=== PATIENT | female | born 1955 | race Caucasian/White ===

== ENCOUNTER → 2018-07-15 | Outpatient (CLI) | payer BC ==
[~2018-07-15] MED LIST: ACCUPRIL; ALPR.25T PO; ASP81TEC PO; ASPIRIN; CENTRUM SILVER; CITRACAL PO; CRS350T PO; CTRZ10T PO; DULO60CA6 PO; ESTR2TAB; FISH1CAP15 PO; HCT25T PO; HYDR-2890 PO; HYDROCHLOROTHIAZIDE; HYTRIN; LANS30CA PO; LIPITOR; METO50TA7; MTP50T PO; MULT-856 PO; NEXIUM; PITA4TAB2 PO; QUIN20TA15 PO; SERTRALINE; SRTR100T PO; TERA1CAP3 PO; TOPROL XL; ZYRTEC D
--- NOTE | 2018-07-15 14:27 | Diagnostic Imaging Report ---
EXAMINATION: Digital mammogram bilateral screening with 3D tomosynthesis and CAD. INDICATION: Screening. COMPARISON: This study is compared to the prior exams of 07/31/2016, 06/06/2015, and 06/01/2014. PERSONAL HISTORY: At this time, there are no current complaints. FINDINGS: The fibroglandular tissue in both breasts is heterogeneously dense. This does limit the sensitivity of this exam. Overall, there does not appear to have been any significant change when compared to the prior study. No primary or secondary sign of malignancy is noted. IMPRESSION: There is no radiographic evidence for malignancy. ACR BI-RADS Category 1: Negative. Result letter will be mailed to the patient. Note: At least 10% of breast cancer is not imaged by mammography. Dictated by: Dictated on workstation # [id number]
== END ==
LOC: RAD 11:30
PROVIDERS: ATTEND Family Medicine
DX: Z12.31 Encounter for screening mammogram for malignant neoplasm of breast (principal)
CPT/HCPCS: 77067

== ENCOUNTER → 2018-11-18 | Outpatient (CLI) | payer BC ==
[~2018-11-18] MED LIST changes: +HOLD METFORMIN - RECEIVED CONTRAST 20 ML VIAL IV SCH; +IOHEXOL 350 MG/ML 100 ML (OMNIPAQUE 350) VIAL IV ONE
--- NOTE | 2018-11-18 15:03 | Diagnostic Imaging Report ---
PROCEDURE: CT abdomen and pelvis with contrast. TECHNIQUE: Multiple contiguous axial images were obtained through the abdomen and pelvis after administration of intravenous contrast. Auto Exposure Controls were utilized during the CT exam to meet ALARA standards for radiation dose reduction. INDICATION: Elevated liver enzymes. Correlation is made with prior CT from 12/13/2011. Imaging through lung bases demonstrates two tiny nodules in the right lower lobe approximately 3-4 mm in size. These could be obscured by the infiltrate or atelectasis noted on prior CT. The liver demonstrates generalized low density consistent with hepatic steatosis. The gallbladder is unremarkable. There is no liver mass. No biliary ductal dilatation is seen. The pancreas and spleen are unremarkable. No adrenal mass is identified. Kidneys are unremarkable. Aorta is calcified but nonaneurysmal. No central, retroperitoneal or mesenteric lymphadenopathy is seen. The small and large bowel loops are normal caliber. No obstruction is identified. There is no ascites. The bladder is unremarkable. No definite pelvic lymphadenopathy is seen. Postsurgical changes in the lumbar spine with spinal instrumentation is again noted. IMPRESSION: 1. Hepatic steatosis. No discrete liver mass is identified. 2. Otherwise unremarkable CT of the abdomen and pelvis. No acute features detected. Dictated by: Dictated on workstation # [id number]
== END ==
LOC: RAD 14:00
PROVIDERS: ATTEND Nurse Practitioner Family
DX: K76.0 Fatty (change of) liver, not elsewhere classified (principal); Z98.890 Other specified postprocedural states
CPT/HCPCS: 74177

== ENCOUNTER → 2018-12-22 | Outpatient (CLI) | payer BC ==
[~2018-12-22] MED LIST changes: -HOLD METFORMIN - RECEIVED CONTRAST 20 ML VIAL IV SCH; -IOHEXOL 350 MG/ML 100 ML (OMNIPAQUE 350) VIAL IV ONE
--- NOTE | 2018-12-22 16:12 | Diagnostic Imaging Report ---
INDICATION: Right hip pain. TIME OF EXAM: 03:59 p.m. Two views right hip demonstrate normal femoral acetabular alignment. There is some superior joint space narrowing consistent with degenerative change. Femoral head and neck are intact. No fractures are seen. Right-sided rami are intact. IMPRESSION: Mild degenerative changes. No acute bony abnormality is detected. Dictated by: Dictated on workstation # [id number]
== END ==
LOC: RAD 15:24
PROVIDERS: ATTEND Family Medicine
DX: M16.11 Unilateral primary osteoarthritis, right hip (principal)
CPT/HCPCS: 73502

== ENCOUNTER → 2019-07-06 | Outpatient (CLI) | payer BC ==
[~2019-07-06] MED LIST changes: +HOLD METFORMIN - RECEIVED CONTRAST 20 ML VIAL IV SCH; +IOHEXOL 350 MG/ML 100 ML (OMNIPAQUE 350) VIAL IV ONE; +NS 100 ML (IVPB) BAG IV ONE
[2019-07-06 11:37] LABS: BUN/CREATININE RATIO 16; CALCIUM 9.4 MG/DL (8.5-10.1); CARBON DIOXIDE 28 MMOL/L (21-32); CHLORIDE 104 MMOL/L (98-107); CREATININE SERUM 0.82 MG/DL (0.60-1.30); GFR ESTIMATED > 60; GLUCOSE 84 MG/DL (70-105); POTASSIUM 3.9 MMOL/L (3.6-5.0); SODIUM 142 MMOL/L (135-145)
--- NOTE | 2019-07-06 13:00 | Diagnostic Imaging Report ---
PROCEDURE: CT chest with contrast only. TECHNIQUE: Multiple contiguous axial images were obtained through the chest after administration of intravenous contrast. Auto Exposure Controls were utilized during the CT exam to meet ALARA standards for radiation dose reduction. INDICATION: Pulmonary nodule. COMPARISON: CT of the abdomen and pelvis dated November 18, 2018. FINDINGS: No significant adenopathy within the chest. Minimal scattered vascular calcifications. No aneurysmal dilatation of the thoracic aorta. The heart is within normal limits in size. No pericardial effusion. No pleural effusion. Mild mural thickening of the distal esophagus, similar to the prior exam. No pneumothorax. 4 mm and smaller subpleural right lower lobe pulmonary nodules are present, appearing stable from the prior examination. This region was predominantly obscured by pleural fluid and atelectasis in 2012. No new pulmonary nodules. The airway is patent. Mild atelectasis within the right lung base. Diffusely decreased density of the liver is again noted. Stimulator lead is seen extending into the mid thoracic spinal canal. Additional postsurgical changes are noted near the thoracolumbar junction. Scattered osseous degenerative changes without acute osseous abnormality. IMPRESSION: Stable sub-4 mm right lower lobe subpleural pulmonary nodules. Recommend a follow-up CT of the chest in one year to monitor stability. No new pulmonary nodules are seen. Mild esophagitis is suspected. Fatty infiltration of the liver. Dictated by: Dictated on workstation # [id number]
== END ==
LOC: RAD 10:50
PROVIDERS: ATTEND Family Medicine
DX: R91.8 Other nonspecific abnormal finding of lung field (principal)
CPT/HCPCS: 36415; 71260; 80048

== ENCOUNTER → 2019-07-21 | Outpatient (CLI) | payer BC ==
[~2019-07-21] MED LIST changes: -HOLD METFORMIN - RECEIVED CONTRAST 20 ML VIAL IV SCH; -IOHEXOL 350 MG/ML 100 ML (OMNIPAQUE 350) VIAL IV ONE; -NS 100 ML (IVPB) BAG IV ONE
--- NOTE | 2019-07-22 09:22 | Diagnostic Imaging Report ---
INDICATION: Routine screening. COMPARISON is made with prior mammograms from 07/15/2018 07/31/2016. 2-D and 3-D bilateral screening mammography was performed with CAD. Both breasts are heterogeneously dense, limiting the sensitivity of mammography. Scattered nodular densities in both breasts appear to be stable and most consistent with benign etiologies. There is an area of increased density in the medial aspect of the left breast appearing more prominent on today's exam. This could represent summation but additional views are recommended. There are scattered benign calcifications in both breasts. No malignant appearing microcalcifications are seen. Axillae are unremarkable. IMPRESSION: BI-RADS 0 Left breast density. Additional views including spot compression and rolled CC views are recommended for further evaluation. ACR BI-RADS Category 0: Incomplete. (Needs additional imaging evaluation). Result letter will be mailed to the patient. Note: At least 10% of breast cancer is not imaged by mammography. Dictated by: Dictated on workstation # [id number]
== END ==
LOC: RAD 14:08
PROVIDERS: ATTEND Nurse Practitioner Family
DX: Z12.31 Encounter for screening mammogram for malignant neoplasm of breast (principal); R92.8 Other abnormal and inconclusive findings on diagnostic imaging of breast
CPT/HCPCS: 77067

== ENCOUNTER → 2019-07-30 | Outpatient (CLI) | payer BC ==
--- NOTE | 2019-07-30 15:35 | Diagnostic Imaging Report ---
INDICATION: Left breast density. Patient presents for additional views. CORRELATION is made with screening mammogram from 07/21/2019 as well as prior mammograms from 07/15/2018. Unilateral left 2-D and 3-D diagnostic mammography was performed. This includes spot compression CC, rolled CC as well as conventional 90 degree lateral view. The CC views show persistent density in the medial left breast with questionable spiculation or architectural distortion. This is difficult to see on the mediolateral view but may be at the level of the nipple. IMPRESSION: BI-RADS 0 Persistent irregular density medial left breast with questionable architectural distortion or spiculation. Sonographic interrogation of the medial left breast is recommended. This is approximately 8 to 10 cm from the nipple. ACR BI-RADS Category 0: Incomplete. (Needs additional imaging evaluation). Result letter will be mailed to the patient. Note: At least 10% of breast cancer is not imaged by mammography. Dictated by: Dictated on workstation # [id number]
--- NOTE | 2019-07-30 15:36 | Diagnostic Imaging Report ---
INDICATION: Left breast density. CORRELATION is made with diagnostic mammogram earlier the same day and screening mammogram from 07/21/2019. Sonographic interrogation of the medial left breast was performed. There is an area of slightly irregular hypoechogenicity at the 9:30 location of the left breast approximately 6 cm from the nipple. This measures 7 mm x 4 mm x 8 mm. There is posterior acoustic shadowing. This likely accounts for the density noted mammographically. No definite internal vascularity is seen. IMPRESSION: Ill-defined hypoechogenicity at the 9:30 location in the left breast approximately 6 cm from the nipple. This likely accounts for the mammographic density. Features are concerning for a small neoplasm and tissue sampling is recommended. This would be amenable to ultrasound-guided biopsy. BI-RADS Category 4 ACR BI-RADS Category 4: Suspicious abnormality. Result letter will be mailed to the patient. Note: At least 10% of breast cancer is not imaged by mammography. Dictated by: Dictated on workstation # [id number]
== END ==
LOC: RAD 14:05
PROVIDERS: ATTEND Family Medicine
DX: R92.2 Inconclusive mammogram (principal)
CPT/HCPCS: 76642

== ENCOUNTER → 2019-08-02 | Outpatient (CLI) | payer BC ==
[~2019-08-02] VITALS: Ht 175.3 cm; Wt 104.5 kg
[~2019-08-02] MED LIST changes: +LIDOCAINE 1% INJ 20 ML 20 ML VIAL INJ ONE
--- NOTE | 2019-08-02 17:58 | Diagnostic Imaging Report ---
INDICATION: Left breast nodule. Patient presents for ultrasound-guided biopsy. Patient was brought to the procedure room and placed on the table in the supine position. Ultrasound imaging of the left breast was performed to evaluate appropriate entry site. A total of 3 passes were made into the hypoechoic nodule at the 9:30 location of the left breast, 6 cm from the nipple utilizing the 14-gauge achieve needle. 3 core biopsies were obtained. Localizer clip was then deployed. Hemostasis was obtained using manual compression. Patient tolerated the procedure well and was sent for postprocedure mammogram in satisfactory condition. IMPRESSION: Successful ultrasound guided core biopsy of the hypoechoic nodule 9:30 location of the left breast, 6 cm from the nipple. Pathology results are currently pending. Dictated by: Dictated on workstation # [id number]
--- NOTE | 2019-08-02 18:56 | Diagnostic Imaging Report ---
INDICATION: Left breast biopsy. 2D, CC and ML mammography of the left breast was performed, status post ultrasound-guided biopsy. Marker clip is located in the medial left breast at the area of irregular density best seen on the CC view. IMPRESSION: Clip placement adjacent to the suspicious area of nodularity in the medial left breast. Dictated by: Dictated on workstation # [id number]
== END ==
LOC: RAD 13:25
PROVIDERS: ATTEND Nurse Practitioner Family
DX: C50.212 Malignant neoplasm of upper-inner quadrant of left female breast (principal)
CPT/HCPCS: 19083; 88305; 88341; 88342; 88360

== ENCOUNTER 2019-11-23 10:45 | Outpatient (RCR) | payer BC ==
[~2019-11-23 10:45] MED LIST changes: -LIDOCAINE 1% INJ 20 ML 20 ML VIAL INJ ONE
== END 2020-01-13 | disposition home or self-care (01) ==
LOC: ONC 10:45
PROVIDERS: ATTEND Radiology Radiation Oncology
DX: Z51.0 Encounter for antineoplastic radiation therapy (principal); C50.212 Malignant neoplasm of upper-inner quadrant of left female breast
CPT/HCPCS: 77290; 77295; 77300; 77334 ×2; G0463; 77307; 77336; 77417; 99204

== ENCOUNTER → 2020-05-12 | Outpatient (CLI) | payer BC | LOC: CARD 09:39 | PROVIDERS: ATTEND Internal Medicine Cardiovascular Disease | DX: I10 Essential (primary) hypertension (principal); E78.2 Mixed hyperlipidemia; Z82.49 Family history of ischemic heart disease and other diseases of the circulatory system; Z72.0 Tobacco use | CPT/HCPCS: 93306 ==

== ENCOUNTER → 2020-05-17 | Outpatient (CLI) | payer BC ==
[~2020-05-17] VITALS: Ht 177 cm; Wt 108.0 kg
[~2020-05-17] MED LIST changes: +CATHETER FLUSH 10 ML SYR IV PRN; +REGADENOSON 0.4 MG/5 ML SYR (LEXISCAN) IV ONE
[2020-05-17 09:09] VITALS: BP 143/86
== END ==
LOC: CARD 07:45
PROVIDERS: ATTEND Internal Medicine Cardiovascular Disease
DX: I10 Essential (primary) hypertension (principal); E78.2 Mixed hyperlipidemia; Z72.0 Tobacco use; Z82.49 Family history of ischemic heart disease and other diseases of the circulatory system
CPT/HCPCS: 78452; 93017; A9502

== ENCOUNTER → 2020-05-26 | Day surgery (SDC) | payer BC ==
[~2020-05-26] VITALS: Ht 175 cm; Wt 108.0 kg
[~2020-05-26] MED LIST changes: +ATOR10TA PO; -CATHETER FLUSH 10 ML SYR IV PRN; +HEParin (CATH LAB) 2,000 ML IV ONE; +HEParin 1000 UNIT/ML (10ML VIAL) FOR BOLUS ONE; +LIDOCAINE 1% INJ 20 ML 20 ML VIAL ONE; +MIDAZOLAM 5 MG/5 ML (VERSED) VIAL ONE; +NITRO DRIP 25000 MCG/D5W 250 ML IV ONE; +NS IV 1000 ML 1,000 ML IV SCH; +NS IV 1000 ML 1,000 ML ONE; +OMG1KC PO; -REGADENOSON 0.4 MG/5 ML SYR (LEXISCAN) IV ONE; +SUMA50TA2 PO; +UBID100C44 PO; +VERAPAMIL 5 MG/2 ML (CALAN) VIAL IV ONE; +fentaNYL INJECTION 100 MCG/2 ML AMP ONE
[2020-05-26 08:26] VITALS: BP 147/69
[2020-05-26 08:41] LABS: HEMOGLOBIN 14.3 g/dL (11.5-16.0); MEAN PLATELET VOLUME 8.8 fL (9.0-12.2); WHITE BLOOD COUNT 6.7 10^3/uL (4.3-11.0)
[2020-05-26 08:55] LABS: PROTHROMBIN TIME PATIENT 13.4 SEC (12.2-14.7)
--- NOTE | 2020-05-26 09:02 | Diagnostic Imaging Report ---
INDICATION: ABN STRESS,DYSPNEA,HTN,. TECHNIQUE: Single view chest 8:41 AM. CORRELATION STUDY: 06/05/2009 FINDINGS: Heart size is borderline but stable. Mildly prominent mediastinum with a tortuous course of the thoracic aorta. The lungs are clear with no consolidating infiltrate. There is no significant effusion or pneumothorax. Thoracic spine stimulator present. Partial visualization of spinal fixation hardware. IMPRESSION: 1. Negative for acute abnormality of the chest. 2. A previously described small right lower lobe pulmonary nodule on CT chest imaging is not appreciated on chest radiograph. Follow-up as per recommendations of prior CT chest recommended. Dictated by: Dictated on workstation # [id number]
[2020-05-26 09:03] LABS: ALANINE AMINOTRANSFERASE 56 U/L (0-55); ALKALINE PHOSPHATASE 68 U/L (40-136); BILIRUBIN,TOTAL 0.6 MG/DL (0.1-1.0); BUN/CREATININE RATIO 18; CALCIUM 9.5 MG/DL (8.5-10.1); CARBON DIOXIDE 25 MMOL/L (21-32); CHLORIDE 104 MMOL/L (98-107); CHOLESTEROL 386 MG/DL (< 200); CREATININE SERUM 0.88 MG/DL (0.60-1.30); GFR ESTIMATED > 60; GLUCOSE 94 MG/DL (70-105); HDL CHOLESTEROL 47 MG/DL (40-60); POTASSIUM 3.9 MMOL/L (3.6-5.0); SODIUM 141 MMOL/L (135-145); TOTAL PROTEIN 7.1 GM/DL (6.4-8.2); TRIGLYCERIDES 251 MG/DL (<150); VLDL CHOLESTEROL 50 MG/DL (5-40)
--- NOTE | 2020-05-26 11:20 | Cardiac Procedure Note-CS/ASA ---
Pre-Procedure Note Pre-Op Procedure Note H&P Reviewed The H&P was reviewed, patient examined and no changes noted. Date H&P Reviewed: May 26, 2020 Time H&P Reviewed: 10:00 Conscious Sedation Pre-Proced Time 10:00 ASA Score 3 For ASA 3 and 4: Consider anesthesia and medical clearance. Also, for patients with a history of failed moderate sedation consider anesthesia. Airway Lungs Heart ASA score ASA 1: a normal healthy patient ASA 2: a patient with a mild systemic disease (mid diabetes, controlled hypertension, obesity x ASA 3: a patient with a severe systemic disease that limits activity (angina, COPD, prior Myocardial infarction) ASA 4: a patient with an incapacitating disease that is a constant threat to life (CHF, renal failure) ASA 5: a moribund patient not expected to survive 24 hrs. (ruptured aneurysm) ASA 6: a declared brain- patient whose organs are being harvested. For emergent operations, add the letter E after the classification Mallampati Classification Grade 3 Sedation Plan Analgesia, Amnesia, Plan communicated to team members, Discussed options with patient/fam, Discussed risks with patient/fam The patient is an appropriate candidate to undergo the planned procedure, sedation, and anesthesia. The patient immediately re-assessed prior to indication. HERVE JOAQUIN MD May 26, 2020 11:20
--- NOTE | 2020-05-26 11:22 | Discharge Inst-Post CATH ---
Discharge Inst-CATH/EP Problems Reviewed?: Yes Post Cardiac Cath/EP D/C Inst Follow Up/Plan Appointment with Dr. Higginbotham's office in 4 weeks <b>CARDIAC CATH/EP PROCEDURE DISCHARGE INSTRUCTIONS</b> ACTIVITY * Go Home directly and rest. * Limit activity of the leg (or wrist if it was used) for 7 days including aerobics, swimming, jogging, bicycling, etc. * Restrict stair-climbing for 7 days if possible, if not, climb up with your non-cath leg, then bring together on the same step. * Avoid lifting, pushing, pulling or excessive movement of the affected extremity for 7 days. * Customary sexual activity may be resumed after 2 days-use caution not to use a position that strains or causes pain to the affected extremity. * No driving for 24 hours. * NO SMOKING. * Avoid straining for bowel movements for 7 days. * Gentle walking on level ground is allowed. * Returning to work will depend on the type of procedure and the results. Your doctor will discuss this with you. CALL YOUR DOCTOR FOR ANY OF THE FOLLOWING: *If bleeding from the puncture site occurs- Apply gentle pressure to site with clean cloth and call your doctor or EMS. * If a knot or lump forms under the skin, increases in size, or causes pain. * If bruising appears to be worsening or moving further down your leg instead of disappearing. * Temperature above 101 F. CARE OF YOUR GROIN INCISION; * Bruising or purple discoloration of the skin near the puncture site is common. * You may shower only, no bathtub bathing for 5 days. Be careful to avoid slipping as your leg may feel stiff. * If a closure device was used on your femoral artery, please see the attached guide regarding care of the device and your leg. * Leave dressing on FOR 24 hours. CARE OF YOUR WRIST INCISION; * Bruising or purple discoloration of the skin near the puncture site is common. * You may shower. * DO NOT submerge wrist. * Leave dressing on FOR 24 hours. HERVE HIGGINBOTHAM MD May 26, 2020 11:22
--- NOTE | 2020-05-26 11:26 | Cardiac Cath Report ---
Cardiac Cath Report Physician (s)/[employer] Member (s) Physician HERVE JOAQUIN MD Pre-Procedure Diagnosis Pre-Procedure Diagnosis: coronary artery disease Post-Procedure Note Procedure Start Date: May 26, 2020 Name of Procedure: Coronary angiogram Findings/Procedure Note PROCEDURE NOTE: 65-year-old lady with history of hypertension, hyperlipidemia, had an abnormal stress test with anterior wall ischemia, scheduled for cardiac catheterization possible PTCA. After explaining the procedure to the patient, all pros and cons were explained, all questions were answered. The patient signed the consent and then she was placed on the cardiac catheterization laboratory. Groin was prepped SL fashion local anesthesia was used. Sheath placed in the right radial artery, [place] catheter advanced to the right coronary artery, angiogram was done, I was unable to intubate the left system, exchanged the catheter into JL 3.5 catheter and intubated the left coronary system, angiogram was done. Did not cross the aortic valve At the end of the procedure the sheath was removed. Vascular band was used FINDINGS: Hemodynamics Aorta 126/71 mean of 95 ANATOMY: Left Main is free of obstructive disease Left Anterior Descending is tortuous artery with mild disease nonobstructive disease Left Circumflex has mild tortuosity with no obstructive disease Right Coronory Artery has tortuosity with mild disease nonobstructive disease CONCLUSION: 1. Tortuous coronary system especially in the LAD with mild disease nonobstructive disease DISCUSSION AND RECOMMENDATION: Stress test abnormality is probably due to extracardiac attenuation, medical therapy is recommended no intervention is needed Anesthesia Type: Conscious Sedation Estimated blood loss (mL): 10 ml Contrast Amount: 35 ml Total Radiation Dose: 474 mGy Post-Procedure Diagnosis Post-operative diagnosis: Shortness of breath Coronary artery disease Hypertension Hyperlipidemia HERVE JOAQUIN MD May 26, 2020 11:26
[2020-05-26 11:35] VITALS: BP 138/84
[2020-05-26 11:50] VITALS: BP 135/78
[2020-05-26 12:05] VITALS: BP 136/81
[2020-05-26 12:20] VITALS: BP 138/82
[2020-05-26 13:55] VITALS: BP 143/83
--- NOTE | 2020-05-26 14:00 | NUR ---
DISCHARGED TO WAITING PRIVATE CAR, PER W/C TO GO HOME. PT RECEIVED DISCHARGE INSTRUCTIONS VERBALLY ET IN PRINT. IV DC'D DRESSING OVER RIGHT WRIST CATH SITE, CLEAN ET DRY
== END ==
LOC: CATH 12:00
PROVIDERS: ATTEND Internal Medicine Cardiovascular Disease
DX: I25.10 Atherosclerotic heart disease of native coronary artery without angina pectoris (principal); I10 Essential (primary) hypertension; R94.39 Abnormal result of other cardiovascular function study; E78.2 Mixed hyperlipidemia; F41.9 Anxiety disorder, unspecified; E66.9 Obesity, unspecified; Z68.35 Body mass index [BMI] 35.0-35.9, adult; M79.18 Myalgia, other site; F17.210 Nicotine dependence, cigarettes, uncomplicated; Z79.82 Long term (current) use of aspirin; Z79.899 Other long term (current) drug therapy; Z88.2 Allergy status to sulfonamides; Z91.048 Other nonmedicinal substance allergy status; Z88.8 Allergy status to other drugs, medicaments and biological substances; Z90.10 Acquired absence of unspecified breast and nipple; Z90.710 Acquired absence of both cervix and uterus; Z85.3 Personal history of malignant neoplasm of breast; Z92.3 Personal history of irradiation; Z80.9 Family history of malignant neoplasm, unspecified
CPT/HCPCS: 71045; 80053; 80061; 85027; 85610; 85730; 87081; 93454; C1894; 36415

== ENCOUNTER → 2020-07-26 | Outpatient (CLI) | payer BC ==
[~2020-07-26] MED LIST changes: -HEParin (CATH LAB) 2,000 ML IV ONE; -HEParin 1000 UNIT/ML (10ML VIAL) FOR BOLUS ONE; -LIDOCAINE 1% INJ 20 ML 20 ML VIAL ONE; -MIDAZOLAM 5 MG/5 ML (VERSED) VIAL ONE; -NITRO DRIP 25000 MCG/D5W 250 ML IV ONE; -NS IV 1000 ML 1,000 ML IV SCH; -NS IV 1000 ML 1,000 ML ONE; -VERAPAMIL 5 MG/2 ML (CALAN) VIAL IV ONE; -fentaNYL INJECTION 100 MCG/2 ML AMP ONE
--- NOTE | 2020-07-26 11:10 | Diagnostic Imaging Report ---
PROCEDURE: CT chest without contrast. TECHNIQUE: Multiple contiguous axial images were obtained through the chest without the use of intravenous contrast. Auto Exposure Controls were utilized during the CT exam to meet ALARA standards for radiation dose reduction. INDICATION: Lung nodule. History of breast cancer. FINDINGS: There is no lung mass. There is no suspicious pulmonary nodule. No findings of primary or secondary pulmonary involvement by neoplasm. No features of pneumonia. There is trace dependent basilar partial atelectasis. A few incidental 2 to 3 mm subpleural scattered scars are present. No thoracic lymphadenopathy. The aorta is normal in caliber. There is no pleural or pericardial effusion. The upper abdomen appears nonacute. IMPRESSION: Unremarkable chest CT. No findings suggestive of metastatic disease or acute abnormalities. Dictated by: Dictated on workstation # [id number]
== END ==
LOC: RAD 10:31
PROVIDERS: ATTEND Family Medicine
DX: R91.1 Solitary pulmonary nodule (principal); Z85.3 Personal history of malignant neoplasm of breast
CPT/HCPCS: 71250

== ENCOUNTER 2022-06-05 09:41 | Outpatient (CLI) | payer MEDICARE, OTHER ==
[~2022-06-05] VITALS: Ht 175.3 cm; Wt 108.0 kg
[~2022-06-05 09:41] MED LIST changes: -DULO60CA6 PO; +DULO60CA7 PO
[2022-06-05 09:50] VITALS: BP 129/66
[2022-06-05] MEDS ORDERED: INCLISIRAN (LEQVIO) 284 MG/1.5 ML SYRINGE SQ ONE (10:30)
== END 2022-06-05 10:50 | disposition home or self-care (01) ==
LOC: SDC 09:41
PROVIDERS: ATTEND Internal Medicine Cardiovascular Disease
DX: E78.2 Mixed hyperlipidemia (principal)
CPT/HCPCS: 96372